=== PATIENT | female | born 1975 | race Caucasian/White ===

== ENCOUNTER → 2023-10-17 | Outpatient (CLI) | payer MEDICAID, SELFPAY ==
--- NOTE | 2023-10-17 14:07 | ART_ITS ---
Reason For Study: LLE Pain Procedure A bilateral lower extremity continuous wave Doppler with analog waveform analysis and ankle brachial indexes. Left Segmental Pressures Left brachial= 120mmHg. Left posterior tibial artery = 123mmHg. Left dorsalis pedis artery = 162mmHg. Left digit = 84 mmHg. The left posterior tibial artery waveforms are biphasic. The left dorsalis pedis waveforms are triphasic. Right Segmental Pressures Right brachial= 129mmHg. Right posterior tibial artery = 154mmHg. Right dorsalis pedis artery = 154mmHg. Right digit = 85 mmHg. The right posterior tibial artery waveforms are triphasic. The right dorsalis pedis waveforms are triphasic. Indices The right ankle brachial index by the posterior tibial artery is 0.95. The right ankle brachial index by the dorsalis pedis is 1.26. The right digital-brachial index is 0.65. The left ankle brachial index by the posterior tibial artery is 1.19. The left ankle brachial index by the dorsalis pedis is 1.19. The left digital-brachial index is 0.66. VL/Ankle Brachial Index Interpretation Summary Right ORAL 1.19, normal. Doppler/PVR waveforms of the right leg normal at rest. TBI diminished, pedal/digit disease vs spasm Left ORAL 1.26, normal. Doppler/PVR waveforms of the left leg normal at rest. TB I diminished, pedal/digit disease vs spasm Ordering Physician: Radha Ambrose Referring Physician: RADHA AMBROSE MD Performed By: Jean Paul Lyman, RVT
--- NOTE | 2023-10-17 14:36 | BI_ITS ---
MAMMOGRAPHY - BILATERAL SCREENING REASON FOR EXAM: Female, 48 years old. Routine annual screening examination. PERTINENT HISTORY: Grandmother with breast cancer. TECHNIQUE: Digital bilateral breast miguel (3D mammographic acquisition) in the CC and MLO projections. 2-D mediolateral oblique (MLO) and craniocaudad (CC) views of both breasts were obtained. CAD: Full Field Digital Mammography with Computer Added Detection was performed. COMPARISON: Comparison is made with prior outside examination dated August 08, 2016. FINDINGS: Breast Composition: The breasts are heterogeneously dense, which may obscure small masses. There are no dominant masses or suspicious calcifications. 2 adjacent tissue clip markers are seen in the central slightly lateral aspect of the left breast. No other significant abnormalities are identified. There has been no significant change since the prior study. BI/SCRN MAMM (CAD)W/MIGUEL BILAT IMPRESSION: Stable bilateral screening mammogram. Yearly follow-up mammogram recommended. (A) ASSESSMENT CATEGORY: BIRADS Category 2: Benign. A letter regarding these results will be sent to the patient by the facility within 30 days. Approximately 10% of breast cancers are not detected by mammography. A normal mammogram should not delay biopsy of a clinically suspicious abnormality. [id number] Electronically Signed: Franklin Lim MD at 8:34 EST ,
== END | disposition home or self-care (01) ==
LOC: CVS 14:06
PROVIDERS: PCP Internal Medicine; Referring Provider Internal Medicine; Visit Provider Internal Medicine
DX: Z12.31 Encounter for screening mammogram for malignant neoplasm of breast (principal); M79.661 Pain in right lower leg; M79.662 Pain in left lower leg
CPT/HCPCS: 77063; 77067; 93922

== ENCOUNTER 2023-11-05 15:30 | Outpatient (RCR) | payer MEDICAID, SELFPAY ==
--- NOTE | 2023-10-02 11:49 | HP.PTEVAL_ITS ---
Patient's Visit Information Visit Information Visit Information: GALLO VERNON is a 48 year old F referred to Physical Therapy by LIZA Muniz with a diagnosis of gait disturbance, difficulty walking, neuropathy. Date of Evaluation: 10/02/23 Physical Therapist: CARI Coburn Visit Plan Frequency: 2x /Week Duration: 2 Months Plan: 2X/ week for 8 weeks for AT for LE strength, core strength, and general mobility. Also work on gastroc stretching (cris the L) and B piriformis stretching HEP: bridge, towel gastroc stretch, seated piriformis stretch Subjective Subjective: Pt has DM and lots of pain in her legs and can hardly walk or do exercises to lose weight. She is on a pump. She has vein surgery in her legs and it did not seem to help. They are doing bloodwork to see if she has a blockage in her legs. thinks that she may have to have that vein surgery in her legs again. She has not been able to get around well for about 1.5 years due to pain. She will walk a little and will get pain in her calf and back of leg and feet will swell up. If she sits too long or stands too long she will start with pain... 20 min is her limit. She has seiZures and it was in February her last one. She did some kind of test that showed she has neuropathy in her legs. She feels her legs are weak. She is on some kind of nerve pain pills. No pain currently but legs feel weak. Objective Objective: Gait: Walks with WBOS and decreased stance time on the L LE and walks with L leg more out into abd. LE MMT: R hip flex 8.8 and L 7.6 R knee ext 7.3 and L 8.7 R knee flex 5.4 and L 5.5 R hip abd in supine 12.3 and L 9.9 Tight in the calf on the L and causes increase pain. Pt has tight HS B with pain. Tight B piriformis B Bridge 1/2 normal ROM standing heel and toe raises: Raising toes up cause back of leg pain on the L and did not get full ROM. No pain on the R but a little better ROM on that side Sit to stand: able to stand up without using her arms Balance/Special Test Scores Lower Extremity Functional Score: 15 Goals Goal 1:: I HEP Goal Time Frame: 6-8 Weeks Goal 2:: Increase L gastroc and B piriformis muscle length and no pain with stretching Goal Time Frame: 6-8 Weeks Goal 3:: Increase LE strength (at time of the eval: LE MMT: R hip flex 8.8 and L 7.6 R knee ext 7.3 and L 8.7 R knee flex 5.4 and L 5.5 R hip abd in supine 12.3 and L 9.9) Goal Time Frame: 6-8 Weeks Goal 4:: Walk with normal gait pattern Goal Time Frame: 6-8 Weeks Goal 5:: Be able to walk in a store greater than 20 min without having to stop Goal Time Frame: 6-8 Weeks Rehabilitation Potential Rehabilitation Potential: Good Anticipated Interventions Patient/Client Instruction: Educate patient on: Condition and Plan of Care For the Purpose of:: To decrease pain, To increase ROM, To improve nutrient delivery to tissue, To improve muscle performance and motor function, To improve ability to perform ADL's, To increase tolerance to activity/condition/position, To improve performance and independence with ADL's, To decrease level of supe rvision to perform tasks, To improve ability of physical actions for home/community/work/leisure, To improve gait and locomotor functions, To improve health of tissue, To decrease soft tissue restriction, To increase flexibility/ROM and To improve endurance Therapeutic Exercise to Include: Strength training, Endurance training, Balance training, Body mechanics, Postural training, Flexibilty training, Gait and locomotor training, Neuromotor development, In an aquatic setting, Active ROM and Dynamic Lumbar Stabilization For the Purpose of:: To decrease pain, To increase ROM, To improve nutrient delivery to tissue, To improve muscle performance and motor function, To improve ability to perform ADL's, To increase tolerance to activity/condition/position, To improve performance and independence with ADL's, To decrease level of supervision to perform tasks, To improve ability of physical actions for home/community/work/leisure, To improve gait and locomotor functions, To improve health of tissue, To decrease soft tissue restriction, To increase flexibility/ROM, To improve endurance and To improve balance Functional Training to Include: Gait training For the Purpose of:: To improve gait and locomotor functions and To improve safety with gait Manual Therapy Techniques to Include: Passive ROM and Soft tissue mobilization For the Purpose of:: To increase ROM, To improve nutrient delivery to tissue, To improve muscle performance and motor function and To improve ability to perform ADL's Text: Thank you for the opportunity to evaluate your patient. For Medicare and Medicare HMO plans, please review the plan of care and approve it. It will need to be FAXED BACK to us at [phone] for Medicare purposes. For Medicare only, by signing this I certify the plan of care. Please let me know if there are questions or concerns regarding this plan of care. Physician Signature: Date:
--- NOTE | 2024-03-07 13:22 | HP.PTDCSUM_ITS ---
Discharge Summary D/C summary: It has been my pleasure to treat GALLO VERNON referred by Brittani Bolton NP- C, with the diagnosis of gait disturbance, difficulty walking, neuropathy for a total of 5 visit(s). Discharge Date: 03/07/24 Please see the following information for a summary of their discharge status. Subjective Subjective: Pt thinks that PT has helped a little bit. She has been stressed out since her legs are not getting better and they have gotten worse since her vein surgery. She is dealing with tunnel issues on her R hand. She is using a cane today because her balance is off. B ankles are swollen and she is not sure why. She feels stressed out. She can not see her Dr for awhile so she is going [facility] after this appt. She can hardly walk. Pt is in tears because she is in so much pain. Pain LLE: Pain Intensity (Out of 10): 8 Spine: Pain Intensity (Out of 10): 7 Overall Improvement % Improvement: 0 Objective Objective/Function: Gait: Pt walks into dept today with no flexion of her L LE and B ankle swelling. She reports that she is in a lot of pain and has to go to [facility] due to all the fluid including on her face. Goals Goal 1:: I HEP Goal Progress: Goal Met Goal 2:: Increase L gastroc and B piriformis muscle length and no pain with stretching Goal 3:: Increase LE strength (at time of the eval: LE MMT: R hip flex 8.8 and L 7.6 R knee ext 7.3 and L 8.7 R knee flex 5.4 and L 5.5 R hip abd in supine 12.3 and L 9.9) Goal 4:: Walk with normal gait pattern Goal 5:: Be able to walk in a store greater than 20 min without having to stop Plan Plan: Hold PT at this time. Pt will call me within 2 weeks to let me know if she will return to PT. Possible AT for the swelling??? DC PT 03/07/24 D/C Information Discharge Comments: DC PT d/c sentence: If there are questions or concerns regarding this patient's physical therapy, please feel free to call me at [phone]. Thank you for the referral of this patient. Sincerely, Beatrice Singh, MPT Balance/Gait/Functional tests Balance/Special Test Scores Lower Extremity Functional Score: 9 TUG Test Time Seconds: 17.69 Tug Test: <20 sec.=mostly independent 30 Second Chair Rise Test Seconds: 9 Improvement % Improvement: 0
== END 2023-11-05 19:00 | disposition home or self-care (01) ==
LOC: PT 15:30
PROVIDERS: PCP Internal Medicine; Referring Provider Nurse Practitioner Family; Visit Provider Nurse Practitioner Family
DX: R26.2 Difficulty in walking, not elsewhere classified; G62.9 Polyneuropathy, unspecified
CPT/HCPCS: 97110; 97161; 97530

== ENCOUNTER 2023-11-05 16:34 | Emergency (ER) | payer MEDICAID, SELFPAY ==
[2023-11-05 16:35] VITALS: BP 130/86; PULSE 85; RESP 14; TEMP 36.6; O2SAT 100; BMI 30.4
== END 2023-11-05 17:32 | disposition left against medical advice (07) ==
LOC: ED 19:23
PROVIDERS: PCP Internal Medicine
DX: Z53.21 Procedure and treatment not carried out due to patient leaving prior to being seen by health care provider (principal)

== ENCOUNTER → 2023-12-18 | Outpatient (CLI) | payer MEDICAID, SELFPAY ==
--- NOTE | 2023-12-18 14:27 | NEURO ---
NCS and/or EMG Patient Report Ordering Doctor: Elba Ambrose DATE OF SERVICE: 12/18/23 Clinical Summary: 48 year old female with symptoms of pain in the right hand. In particular significant pain, tenderness, and swelling in the medial region of the right hand/wrist as well as the thumb. Nerve Conduction Studies Summary: The right median-D2 SNAP distal latency was prolonged with reduced amplitude. The right ulnar-D5 SNAP was absent. The right ulnar-payton response amplitude was reduced. Needle Examination Summary: Needle examination of the right upper extremity demonstrated a higher proportion of motor unit action potentials with increased amplitude and increased duration in the right first dorsal interosseous muscle. Impression: There is electrodiagnostic evidence of the following - 1) Moderate to severe, right median mononeuropathy at the wrist (carpal tunnel syndrome), with secondary sensory fiber axonal loss Tenderness and swelling in the medial region of the wrist/hand hampered ulnar nerve conductions possibly to some degree, but in the absence of this, the electrodiagnostic data is suggestive of a non-localizable right ulnar mononeuropathy. Multi Select Codes Neurology Neurology Interp Codes: 67552-91 Musc test done w/n test comp (interp) (1) and 10756-13 Nrv cndj test 7-8 studies (interp)
== END | disposition home or self-care (01) ==
LOC: PSN 13:18
PROVIDERS: PCP Internal Medicine; Referring Provider Internal Medicine; Visit Provider Internal Medicine
DX: M79.644 Pain in right finger(s) (principal)
CPT/HCPCS: 95886; 95910

== ENCOUNTER 2024-01-23 05:57 | Day surgery (SDC) | payer MEDICAID, SELFPAY ==
[2024-01-23 06:28] VITALS: BP 126/86; PULSE 88; RESP 18; TEMP 36.2; O2SAT 99
[2024-01-23] MEDS: Lactated Ringers 1,000 ML 15 ML IV (06:51)
--- NOTE | 2024-01-23 07:09 | HP.PCM_ITS ---
HPI - General HPI Narrative GALLO VERNON, is a 49 F who presents for right endoscopic carpal tunnel release. No changes to the patient's history and physical exam. Right wrist marked. Risks alternatives benefits discussed as well as postoperative instructions given. Patient understands okay to proceed with the surgery. Again the hem oglobin A1c is a little bit over 7 but this has been overall trending down and they are on an insulin pump. MR#: [id number] Acct: [id number] Name: GALLO VERNON GOSIA Rep #: [id number] : 1975 Provider: Dr. Adolfo Blackmon MD Age/Sex: 48/F Location: [facility] [place] Status: Signed Intake Vital Signs 12/18/2409:11 12/19/2412:56 12/31/2411:58 Height 5 ft 2 in 5 ft 2 in 5 ft 2 in Weight: 163 lb 163 lb 8 oz BMI 29.8 29.9 BP 134/87 H Blood Pressure Location Lt brachial Position Sitting Respiration 16 Pulse 87 Pulse Source Monitor Temp 98.4 F Temp Source Temporal Pulse Oximetry (%) 98 Oxygen Delivery Method room air Intake Visit Reasons: RIGHT HAND Chief Complaint: Right hand pain Accompanied by: Is patient in pain?: Yes Pain scale (1-10): 8 Allergies cephalexin Allergy (Intermediate, Verified 12/31/23 12:59) Hivesmetformin Adverse Reaction (Intermediate, Verified 12/31/23 12:59) DiarrheaPenicillins Adverse Reaction (Intermediate, Verified 12/31/23 12:59) Hives Medications blood-glucose sensor (Dexcom G7 Sensor device) #3 ea 03/21/23 [Rx Confirmed 12/31/23] clonazepam 0.5 mg tablet (Klonopin) 0.5 mg PO DAILY 03/21/23 [History Confirmed 12/31/23] gabapentin 300 mg capsule 300 mg PO TID 03/21/23 [History Confirmed 12/31/23] pen needle, diabetic 32 gauge x 5/32 (BD Ultra-Fine Candy Pen Needle) #100 ea 03/21/23 [Rx Confirmed 12/31/23] topiramate 200 mg capsule,extended release 24 hr 200 mg PO DAILY 03/21/23 [History Confirmed 12/31/23] Accu-Chek Guide test strips (blood sugar diagnostic) #100 ea 08/03/23 [Rx Confirmed 12/31/23] cane #1 ea 09/19/23 [Rx Confirmed 12/31/23] levetiracetam 500 mg tablet mg PO 09/27/23 [History Confirmed 12/31/23] venlafaxine 37.5 mg capsule,extended release 24 hr (Effexor XR) 37.5 mg PO QHS #30 caps 09/27/23 [Rx Confirmed 12/31/23] insulin aspart U-100 100 unit/mL (3 mL) subcutaneous pen (Novolog FlexPen U-100 Insulin aspart) 100 unit subcut .continuous #30 mL 11/19/23 [Rx Confirmed 12/31/23] ergocalciferol (vitamin D2) 1,250 mcg (50,000 unit) capsule (Vitamin D2) 1,250 mcg PO QWEEK #12 caps 11/26/23 [Rx Confirmed 12/31/23] rosuvastatin 10 mg tablet 10 mg PO DAILY #30 tabs 12/19/23 [Rx Confirmed 12/31/23] PFSH Medical History Cataract, right eye Depression Mixed hyperlipidemia Presence of insulin pump Seizures Vitamin D deficiency Surgical History Cataract (lens) fragments in eye following cataract surgery H/O angioplasty H/O hernia repair History of appendectomy History of surgical procedure Previous section S/P tonsillectomy Family History Mother Hypertension CVA (cerebral vascular accident) Blood clot in vein Diabetes Kidney disease Thyroid disorderFather Arthritis Heart disease HypercholesterolemiaGrandfather Cancer throatGrandmother Breast cancer Social History adopted: No household members: spouse, children and other details: grandchildren current occupational status: unemployed pets and animals: No Smoking Status: Former smoker quit date: 08/27/93 pack-years: 1 Electronic Cigarette Use: not used alcohol intake: never substance use type: does not use diet: low carbohydrate caffeine: No frequency: does not exercise seatbelt use: always do you feel safe at home: Yes HPI RIGHT HAND Details: This documentation accurately reflects the service provided and the decisions made by me, Dr. Adolfo Blackmon MD 12/31/23 9301. Part of today?s visit was documented by [ ], acting as scribe. GALLO VERNON is a 48 year old F here today for R thumb and index tingling, weakness, hard to use the hand, here w Duran her . RHD. tried a brace. warm compresses. diebetes, insulin pump. a1c last is 7.4. feels clumsy. moves fingers back and forth, no shaking it out. No symptoms in the ulnar nerve distribution. This is getting worse with time. The patient is failing conservative management. Ortho Exam General General: Yes no acute distress Neurologic: Yes alert and Yes oriented x3 Psychologic: Yes reasonable and appropriate Right Wrist/Hand Skin/Wound: Yes CDI, No Swelling, No Ecchymosis, Yes nail intact and Yes capillary refill normal Right Wrist: Yes ROM-Extension 0-60, ROM-Flexion 0-80, ROM-Pronation 0-80, ROM- Supination 0-90, Durken's Test, Tinel's and Phalen's; No Thenar Atrophy or Hypothenar Atrophy Motor: EPL: 5, FDP-2: 5, 1st Dorsal Interosseous: 5 and APB: 4 Sensation: Radial: I, Ulnar: I and Median: D Left Wrist/Hand Skin/Wound: No Swelling and No Ecchymosis Supplemental Info [facility] [address] [place] [address] MR#: [id number] Acct: [id number] Name: GALLO VERNON GOSIA Rep #: [id number] : 1975 48 From: Tha No MD Referring Dr: Elba Ambrose MD Status: REG CLI Location: PSN Date: 12/18/23 Sex: F C NCS and/or EMG Patient Report Ordering Doctor: Elba Ambrose DATE OF SERVICE: 12/18/23 Clinical Summary: 48 year old female with symptoms of pain in the right hand. In particular significant pain, tenderness, and swelling in the medial region of the right hand/wrist as well as the thumb. Nerve Conduction Studies Summary: The right median-D2 SNAP distal latency was prolonged with reduced amplitude. The right ulnar-D5 SNAP was absent. The right ulnar-payton response amplitude was reduced. Needle Examination Summary: Needle examination of the right upper extremity demonstrated a higher proportion of motor unit action potentials with increased amplitude and increased duration in the right first dorsal interosseous muscle. Impression: There is electrodiagnostic evidence of the following - 1) Moderate to severe, right median mononeuropathy at the wrist (carpal tunnel syndrome), with secondary sensory fiber axonal loss Tenderness and swelling in the medial region of the wrist/hand hampered ulnar nerve conductions possibly to some degree, but in the absence of this, the electrodiagnostic data is suggestive of a non-localizable right ulnar mononeuropathy. Multi Select Codes Neurology Neurology Interp Codes: 69417-98 Musc test done w/n test comp (interp) (1) and 63108-51 Nrv cndj test 7-8 studies (interp) Coding Level of Care Code Off vis,new,level 4 Diagnoses Carpal tunnel syndrome on right G56.01 Assessment and Plan Assessment and Plan (1) Carpal tunnel syndrome on right: Status: Acute Plan: 48-year-old female with signs symptoms and nerve conduction study evidence of right carpal tunnel syndrome. Patient counseled on diagnosis prognosis different treatment options available for this. This can get worse or more permanent with time and the results become more unpredictable the more severe it is. I let the patient know this. They can try rest ice anti-inflammatories active modifications doing nothing nighttime splinting cortisone injections as well as open or endoscopic surgery. The patient is already failed a trial of bracing and activity modifications. They are interested in a definitive surgical solution for this. That would be right endoscopic carpal tunnel release. Typically bit quicker recovery but possibly a higher chance of incomplete release in the literature. We booked and consented the patient for surgery today. In addition I did warn them that the hemoglobin A A1c is slightly over 7 may be a risk factor for increased infection but her hemoglobin A1c does tend to be trending down and she has good control now with an insulin pump. Pros and cons risks and benefits were discussed with the patient including but not limited to infection, pain, stiffness, bleeding, damage to surrounding structures, neurovascular injury, recurrence or retear, failure or wear of hardware or fixation, instability, fracture, deep vein thrombosis and pulmonary embolism, anesthetic risks, , patient dissatisfaction, need for further surgery and other risks. Patient understood and wished to proceed with surgery, and signed the informed consent documentation. [facility] Medical History (Updated 01/16/24 @ 08:24 by Ana Galloway) Post-menopausal Wears glasses Insulin dependent diabetes mellitus Ambulates with cane Arthritis Back pain Migraine headache Dietary restriction Former smoker Shortness of breath on exertion Leg cramps History of pain when walking History of edema History of stress test Presence of insulin pump Depression Cataract, right eye Vitamin D deficiency Seizures Mixed hyperlipidemia Home Medications ?Medication ?Instructions ?Recorded ?Last Taken ?Type blood-glucose sensor (Dexcom G7 #3 ea 03/21/23 Unknown Rx Sensor device) clonazepam 0.5 mg tablet (Klonopin) 0.5 mg PO DAILY 03/21/23 01/22/24 History pen needle, diabetic 32 gauge x #100 ea 03/21/23 Unknown Rx (BD Ultra-Fine Candy Pen Needle) topiramate 200 mg capsule,extended 200 mg PO DAILY 03/21/23 01/22/24 History release 24 hr Accu-Chek Guide test strips (blood #100 ea 08/03/23 Unknown Rx sugar diagnostic) cane #1 ea 09/19/23 Unknown Rx levetiracetam 500 mg tablet 500 mg PO DAILY 09/27/23 01/23/24 History venlafaxine 37.5 mg 37.5 mg PO QHS #30 caps 09/27/23 01/21/24 Rx capsule,extended release 24 hr (Effexor XR) insulin aspart U-100 100 unit/mL 100 unit subcut .continuous #30 mL 11/19/23 01/23/24 Rx (3 mL) subcutaneous pen (Novolog FlexPen U-100 Insulin aspart) ergocalciferol (vitamin D2) 1,250 1,250 mcg PO QWEEK #12 caps 11/26/23 01/22/24 Rx mcg (50,000 unit) capsule (Vitamin D2) rosuvastatin 10 mg tablet 10 mg PO DAILY #30 tabs 12/19/23 01/21/24 Rx dulaglutide 0.75 mg/0.5 mL 0.75 mg (0.5 mL) subcut QWEEK #2 mL 01/16/24 Unknown [facility] gabapentin 300 mg capsule 300 mg PO TID #90 caps 01/22/24 01/23/24 Rx Allergy/AdvReac Type Severity Reaction Status Date / Time cephalexin Allergy Intermediate Hives Verified 01/23/24 06:24 empagliflozin (From Allergy Intermediate Hives Verified 01/23/24 06:24 Jardiance) Penicillins Allergy Intermediate Hives Verified 01/23/24 06:24 metformin AdvReac Intermediate Diarrhea Verified 01/23/24 06:24 Family History Mother Hypertension CVA (cerebral vascular accident) Blood clot in vein Diabetes Kidney disease Thyroid disorder Father Arthritis Heart disease Hypercholesterolemia Grandfather Cancer throat Grandmother Breast cancer Surgical History S/P tonsillectomy History of surgical procedure H/O angioplasty History of appendectomy Cataract (lens) fragments in eye following cataract surgery H/O hernia repair Previous section Social History adopted: No household members: spouse, children and other details: grandchildren current occupational status: unemployed pets and animals: No Smoking Status: Former smoker quit date: 08/27/93 pack-years: 1 Electronic Cigarette Use: not used alcohol intake: never substance use type: does not use diet: low carbohydrate caffeine: No frequency: does not exercise seatbelt use: always do you feel safe at home: Yes Vital Signs Vital Signs Vital Signs: 01/23/24 06:28 01/23/24 06:28 Temperature 97.1 F L Temperature Source Temporal Pulse Rate 88 Respiratory Rate 18 Respiratory Pattern Normal Blood Pressure 126/86 H Blood Pressure Mean 99 Blood Pressure Source Monitor Blood Pressure Position Semi-Fowlers Blood Pressure Location Left Arm Pulse Ox 99 Oxygen Delivery Method Room Air Weight Weight: 164 lb 3.91 oz Body Mass Index (BMI) 30.0
[2024-01-23] MEDS: Clindamycin 900 MG/50 ML BAG 75 MG IV (07:34)
[2024-01-23] MEDS: Bupivacaine 0.25% 30 ML Vial (08:11)
--- NOTE | 2024-01-23 08:19 | OP.PCM_ITS ---
Problems Associated Problem List Diagnoses (1) Carpal tunnel syndrome on right: Report of Operation Date of Procedure: 01/23/24 Pre-Operative Diagnosis: right carpal tunnel syndrome Post-Operative Diagnosis: same Surgery/Procedure Performed:: right endoscopic carpal tunnel release Surgeon: Adolfo Blackmon Type of Anesthesia: Local and MAC Anesthesiologist: Jeramy Galeas Estimated Blood Loss (mL): 10 Description of Procedure: Patient was brought to the operating room theater.? The patient was administered 900mg iv clindamycin prior to the start of the procedure.? Placed supine on the operating room table.? Anesthesia induced.? SCDs on the legs.? Tourniquet applied to right upper operative extremity, appropriately padded. Arm table used. Operative extremity prepped and draped in the usual sterile fashion with chlorhexidine-based prep solution allowing over 3 minutes drying time prior to draping.? Preoperative timeout performed to confirm the site patient and the surgery. I used the Arthex center line estrella scope endoscopic carpal tunnel kit / technique. 4 cc 0.25% bupivicaine at incision site. ? Tourniquet up at 250mmg. I made a transverse 2 cm incision in line with the? transverse wrist crease.? This was in line with the fourth digit.? I carried the dissection down through skin and subcutaneous tissue achieved meticulous hemostasis. Just ulnar to palmaris tendon.? I incised the antebrachial fascia.? I passed sequential dilators into the carpal tunnel along the radial border of the Guyon's canal aiming for the fourth digit with the hand in extension. I used a synovial elevator to identify the transverse fibers of the transverse carpal tunnel ligament.? Passed the scop e into the carpal tunnel. Once I had identified the full proximal and distal extent of the ligament I fully released the ligament under direct visualization by deploying the blade and slowly withdrawing the scope made sequential passes until I no longer felt tension as well as the entire extent of the ligament was released under direct visualization.? Sounded the tunnel with felipe tenotomy scissors, complete release, no bands. Pictures taken and saved before and after release. Slight proximal release of fascia. Tourniquet let down. Wound thoroughly irrigated.?Meticulous hemostasis achieved.? Incisions closed with 3-0 ethilon for the skin.?Skin was cleaned and dried. adaptic and 4x4 gauze and rafita wrap. Patient woken up,? transferred off the operating room table and taken to posta nesthetic care unit in stable condition. All sponge needle instrument counts were correct no complications.? Plan for the patient to be discharged home according to day surgery criteria when they are comfortable. Follow-up in the office in 2 days time. Gentle ROM hand and elbow no heavy lifting. cpt 68066 Complications none Admit VTE Documentation VTE Present on Admission: No VTE Mechan Device Prophylaxis: SCD's VTE Pharm Prophylaxis ordered?: No Reason prophylaxis not ordered:: Treatment Not Indicated Procedures Musculoskeletal 20xxx-29xxx: Other Procedure See Report
--- NOTE | 2024-01-23 08:23 | DCINST_ITS ---
Discharge Instructions Diet Discharge Diet: No restrictions Activity Discharge Activity: Return to Normal Activity Ice area for (Minutes): 10 Keep extremity elevated above heart level: Operative Extremity Dressing / Incision Call your doctor if your incision/area has: Continuous Slow Oozing, Sudden Increased Bleeding, Increased Pain/ Swelling, Increased Redness, Foul Smelling D ischarge and Swelling at the incision site Remove Dressing in: leave in place till F/U Follow Up Care Please Follow Up With: Adolfo Blackmon MD When: 2 days Test Results: Test results from this visit will be discussed in further detail at your follow- up appointment, if applicable. Discharge Plan Admission Attending Provider: Adolfo Blackmon Primary Care Provider: Elba Ambrose Instructions Print Language: Macanese Discharge Orders/Prescriptions Prescriptions: No Action clonazepam [Klonopin] 0.5 mg tablet 0.5 mg PO DAILY topiramate 200 mg capsule,extended release 24hr 200 mg PO DAILY (DME) Dexcom G7 Sensor Device See Rx Instructions .Route Qty: 3 5RF Rx Instructions: 1 sensor q 10 days (DME) pen needle, diabetic [BD Ultra-Fine Candy Pen Needle] 32 gauge x 5/32 needle See Rx Instructions .Route Qty: 100 5RF Rx Instructions: 4x/day (DME) cane Device See Rx Instructions .Route Qty: 1 0RF Rx Instructions: As directed levetiracetam 500 mg tablet 500 mg PO DAILY venlafaxine [Effexor XR] 37.5 mg capsule,extended release 24hr 37.5 mg PO QHS Qty: 30 1RF rosuvastatin 10 mg tablet 10 mg PO DAILY Qty: 30 5RF ergocalciferol (vitamin D2) [Vitamin D2] 1,250 mcg (50,000 unit) capsule 1,250 mcg PO QWEEK Qty: 12 0RF (DME) Accu-Chek Guide test strips Strip See Rx Instructions .Route Qty: 100 6RF Rx Instructions: tid insulin aspart U-100 [Novolog FlexPen U-100 Insulin] 100 unit/mL (3 mL) insulin pen 100 unit subcut .continuous Qty: 30 5RF Rx Instructions: to be used via insulin pump Trulicity 0.75 mg/0.5 mL pen injector 0.75 mg subcut QWEEK Qty: 2 3RF gabapentin 300 mg capsule 300 mg PO TID Qty: 90 0RF Referrals / Follow Up: Elba Ambrose MD [Primary Care Provider] - Adolfo Blackmon MD [Med Staff - Active Staff] - Disposition Disposition (needs filled in before D/C Order can be placed): Home, Self Care
[2024-01-23 08:25] VITALS: BP 126/86; BP 87/69; BP 91/69; PULSE 82; PULSE 89; RESP 16; RESP 18; TEMP 36.6; O2SAT 99
[2024-01-23 08:30] VITALS: BP 126/86; BP 99/70; PULSE 87; RESP 16; O2SAT 100
[2024-01-23 08:35] VITALS: BP 126/86; BP 96/70; PULSE 84; RESP 16; O2SAT 100
[2024-01-23 08:40] VITALS: BP 100/70; BP 126/86; PULSE 86; RESP 16; TEMP 36.9; O2SAT 100
[2024-01-23 09:07] VITALS: BP 126/86
[2024-01-23 09:55] LABS: Bedside Glucose 159 mg/dL (74-106)
== END 2024-01-23 09:18 | disposition home or self-care (01) ==
LOC: SDC 05:57 → AC 05:59
PROVIDERS: PCP Internal Medicine; Referring Provider Orthopaedic Surgery Sports Medicine; Visit Provider Orthopaedic Surgery Sports Medicine
PROC: (CPT 64721; principal; 2024-01-23 07:15)
DX: G56.01 Carpal tunnel syndrome, right upper limb (principal); Z79.4 Long term (current) use of insulin; E11.41 Type 2 diabetes mellitus with diabetic mononeuropathy; E78.2 Mixed hyperlipidemia; Z87.891 Personal history of nicotine dependence; Z96.41 Presence of insulin pump (external) (internal); Z79.899 Other long term (current) drug therapy
CPT/HCPCS: 64721; 82962; J2405

== ENCOUNTER → 2024-01-25 | Outpatient (CLI) | payer MEDICAID, SELFPAY ==
--- NOTE | 2024-01-25 13:24 | MRI_ITS ---
STUDY: MRI LUMBAR SPINE WITHOUT CONTRAST REASON FOR EXAM: Female, 49 years old. Chronic neuropathic pain TECHNIQUE: Standardized fat and water weighted pulse sequences were obtained in the sagittal and axial planes. COMPARISON: None FINDINGS: T11-T12 and T12-L1: (Sagittal only). Normal endplates. Normal disc height, hydration and morphology. No ventral extradural defects. Normal central canal and bilateral intervertebral neural foramina. Normal lumbar lordosis. There is no substantial scoliosis. Normal conus medullaris that terminates at the upper L1 vertebral body level. L1-2: Normal endplates. Normal disc height, hydration and morphology. Normal bilateral facet joints. Normal central canal and bilateral lateral recesses. Normal bilateral intervertebral neural foramina. L2-3: Normal endplates. Normal disc height, hydration and morphology. Normal bilateral facet joints. Normal central canal and bilateral lateral recesses. Normal bilateral intervertebral neural foramina. L3-4: Normal endplates. Normal disc height, hydration and morphology. Normal bilateral facet joints. Normal central canal and bilateral lateral recesses. Normal bilateral intervertebral neural foramina. L4-5: Normal endplates. Normal disc height, hydration and morphology. Normal bilateral facet joints. Normal central canal and bilateral lateral recesses. Normal bilateral intervertebral neural foramina. L5-S1: Normal endplates. Normal disc height, hydration and morphology. Normal bilateral facet joints. Normal central canal and bilateral lateral recesses. Normal bilateral intervertebral neural foramina. Normal visualized sacral ala. Normal visualized paraspinous soft tissue structures. MRI/Spine Lumbar (Routine) IMPRESSION: Normal unenhanced MR examination of the lumbar spine. Electronically Signed: Mehdi Terry MD at 15:43 EDT ,
== END | disposition home or self-care (01) ==
LOC: MRI 13:08
PROVIDERS: PCP Internal Medicine; Referring Provider Internal Medicine; Visit Provider Internal Medicine
DX: M79.604 Pain in right leg (principal); M79.605 Pain in left leg; R26.2 Difficulty in walking, not elsewhere classified; G62.9 Polyneuropathy, unspecified
CPT/HCPCS: 72148

== ENCOUNTER → 2024-03-05 | Outpatient (CLI) | payer MEDICAID, SELFPAY ==
--- NOTE | 2024-03-05 12:12 | NEURO ---
NCS and/or EMG Patient Report Ordering Doctor: Adolfo Blackmon DATE OF SERVICE: 03/05/24 Rebekah presents with numbness and tingling in the left hand, primarily digits 1 and 2. Electrodiagnostic findings: Left median motor nerve demonstrates normal distal latency, amplitude with reduced conduction velocity. Left ulnar motor nerve demonstrates normal distal latency and amplitude, with reduced conduction across the elbow. Ulnar F?wave is noted. Prolonged left median sensory latency at the wrist. Absent left ulnar sensory response. Needle EMG testing was performed the left upper limb. All muscles tested showed no evidence of denervation with normal motor unit action potentials. Electrodiagnostic impression: This is an abnormal study in the left upper limb 1. Electrodiagnostic findings suggestive of left-sided median mononeuropathy. This is consistent with a mild left carpal tunnel syndrome 2. Electrodiagnostic findings suggestive of left-sided ulnar neuropathy, consistent with a mild left cubital tunnel syndrome. However the patient does not appear to be clinically symptomatic from this. 3. No electrodiagnostic evidence is noted for cervical radiculopathy Multi Select Codes Neurology Neurology Interp Codes: 88440-55 Musc test done w/n test comp (interp) and 06020-25 Nrv cndj test 7-8 studies (interp)
== END | disposition home or self-care (01) ==
LOC: PSN 10:23
PROVIDERS: PCP Internal Medicine; Referring Provider Orthopaedic Surgery Sports Medicine; Visit Provider Orthopaedic Surgery Sports Medicine
DX: G56.00 Carpal tunnel syndrome, unspecified upper limb (principal)
CPT/HCPCS: 95886; 95910

== ENCOUNTER 2024-04-15 14:30 | Outpatient (RCR) | payer MEDICAID, SELFPAY ==
--- NOTE | 2024-04-23 10:46 | HP.OTEVAL ---
Patient's Visit Information Visit Information Visit Information: GALLO VERNON is a 49 year old F, referred to Occupational Therapy by Dr. Adolfo Blackmon MD, with a diagnosis of carpal tunnel syndrome R. Date of Evaluation: 04/15/24 Occupational Therapist: Aurelia Castellano, OTR/L, CHT Subjective Subjective: This 49-year-old female arrives with dx of right carpal tunnel syndrome. carpal tunnel surgery 12 weeks ago R hand. currently experiencing pain level 8. pt demo limited ROM and pain in R hand/wrist. pt unable to make composite fist. states tingling in fingertips. wrist and fingers get stiffer throughout the day. currently not working. pt states dr suggested might be CRPS- going to schedule david for testing for CRPS and MRI to be scheduled. difficulty cleaning, cooking, dressing and showering takes longer and likes to lynne. was previously walking with cane but due to hand/wrist pain is not using cane. ROM Wrist: L 35/37 R 20/10 ROM Comments: L composite fist WFL R 3.5cm away from composite fist Strength Electronic Health Records Specialist: L 60# R NT Lateral Pinch: L 11# R NT Tripod Pinch: L 12# R NT Strength Comments: R NT due to inability to make a fist and pain Edema PIP: L [id number] R thumb 7.5cm Other: L around MPs 21cm R around MPs 24cm Sensation Sensation Comments: 2.83 all R and L Quick DASH-Disab of Arm,Shoulder& Hand Quick DASH Score: 81.8175 Goals Goal:Daily scar massage when approriate: Yes Goal:ROM equal to unaffected hand: Yes Goal:Electronic Health Records Specialist/Pinch strength at least 75% of unaffected hand: Yes Goal:No pain with affected hand use: Yes Goal:PIP Circumferences equal to unaffected hand: Yes Comment: MCP region Goal:Full use of affected hand in daily activities including work: Yes Other Goal: pt will improve QuickDASH score by 50 points or more to maximize use of RUE. (81.8) Rehabilitation General Assessment: this 49-year-old female arrives with dx of carpal tunnel syndrome R hand. 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 pt recommended to complete OT services 2-3x a week for 4 weeks to address above impairments. Therapy session was directly supervised and doc. approved by Aurelia PAT/Katt,CHT. Rehabilitation Potential: Good Anticipated Interventions Anticipated Interventions: A/AAROM/PROM, Strengthening, Edema Control, Scar Care, Sensory Retraining, Modalities, Joint Protection/Energy Conservation, Ergonomic Education, Education re assistive Equipment, Education re Diagnosis and Home Program Visit Plan Frequency: 2-3x /Week Duration: 4 Weeks General Plan: decrease pain improve ROM increase strength improve sensation use wrist/hand normally again TEXT: Thank you for the opportunity to evaluate your patient. For Medicare and Medicare HMO plans, please review the plan of care and approve it. It will need to be FAXED BACK to us at [phone] for Medicare purposes. Please let me know if there are questions or concerns regarding this plan of care. Physician Signature: Date:
== END 2024-04-15 19:00 | disposition home or self-care (01) ==
LOC: OT 14:30
PROVIDERS: PCP Internal Medicine; Referring Provider Orthopaedic Surgery Sports Medicine; Visit Provider Orthopaedic Surgery Sports Medicine
DX: G56.03 Carpal tunnel syndrome, bilateral upper limbs (principal)
CPT/HCPCS: 97110; 97165; 97166; 97530

== ENCOUNTER → 2024-07-02 | Outpatient (CLI) | payer MEDICAID, SELFPAY ==
[2024-07-02 12:10] LABS: Absolute Lymphocyte Count 1.76 X10^3/uL (0.83-4.51); Absolute Neutrophil Count 5.4 X10^3/uL (2.0-7.7); Basophil# 0.11 X10^3/uL; Basophil% 1.4 % (0-1); Eosinophil# 0.03 X10^3/uL; Eosinophils% 0.4 % (0-5); Hematocrit 40.4 % (37-47); Hemoglobin 13.2 g/dL (12.0-15.0); Lymphocyte # 1.76 X10^3/ul (0.83-4.51); Lymphocyte % 22.8 % (19-41); Mean Corp Hgb Conc 32.7 g/dL (32-36); Mean Corpuscular Hgb 29.7 pg (27.0-32.0); Monocyte% 5.2 % (0-10); NRBC Flagged by Analyzer 0 % (0-5); Neutrophil # 5.42 X10^3/uL (2.7-7.7); Neutrophil % 70.1 % (47-70); Platelet Count 306 K/mm3 (150-450); RBC Distribution Width CV 13.2 % (11.6-14.6); RBC Distribution Width SD 43.4 fl (35.1-43.9); Red Blood Count 4.44 M/mm3 (4.2-5.4); White Blood Count 7.7 K/mm3 (4.4-11.0)
[2024-07-02 12:41] LABS: Vitamin D,25 Hydroxy 12.5 ng/mL
== END | disposition home or self-care (01) ==
LOC: BIMLAB 08:00
PROVIDERS: PCP Internal Medicine; Referring Provider Internal Medicine; Visit Provider Internal Medicine
DX: E11.9 Type 2 diabetes mellitus without complications (principal); G40.909 Epilepsy, unspecified, not intractable, without status epilepticus; E55.9 Vitamin D deficiency, unspecified
CPT/HCPCS: 36415; 82306; 85025